=== PATIENT | male | born 1995 | race Caucasian/White ===

== ENCOUNTER 2021-09-20 22:36 | Emergency (ER) | payer MEDICAID ==
[~2021-09-20] VITALS: Ht 172.7 cm; Wt 87.4 kg
[2021-09-20] MEDS ORDERED: KETOROLAC 30MG/ML VIAL IM ONE (23:00)
[2021-09-20 23:19] VITALS: BP 131/71
[2021-09-21] MEDS ORDERED: HYDR-4001 MT (01:22)
== END 2021-09-21 01:43 | disposition home or self-care (01) ==
LOC: ER 22:36
DX: M79.641 Pain in right hand (principal)
CPT/HCPCS: 73130; 99283; J1885; A4565

== ENCOUNTER 2021-09-23 20:44 | Emergency (ER) | payer MEDICAID ==
[~2021-09-23 20:44] MED LIST: HYDR-4001 MT
== END 2021-09-23 22:33 | disposition left against medical advice (07) ==
LOC: ER 20:44
DX: Z53.21 Procedure and treatment not carried out due to patient leaving prior to being seen by health care provider (principal)